=== PATIENT | female | born 1945 | race Caucasian/White ===

== ENCOUNTER 2018-09-28 10:49 | Emergency (ER) | payer MEDICARE | END 2018-09-28 15:09 | disposition home or self-care (01) | LOC: M ED 10:49 | DX: S50.02XA Contusion of left elbow, initial encounter (principal); W01.0XXA Fall on same level from slipping, tripping and stumbling without subsequent striking against object, initial encounter; Y92.481 Parking lot as the place of occurrence of the external cause; I25.10 Atherosclerotic heart disease of native coronary artery without angina pectoris; Z86.73 Personal history of transient ischemic attack (TIA), and cerebral infarction without residual deficits; Z87.891 Personal history of nicotine dependence; Z79.02 Long term (current) use of antithrombotics/antiplatelets; Z79.82 Long term (current) use of aspirin | CPT/HCPCS: 73080 ==

== ENCOUNTER → 2021-05-08 | Outpatient (REF) | payer MEDICARE ==
[~2021-05-08] MED LIST: ASPI81TA26 PO; CLOP75TA2 PO; ESCI10TA16 PO; ESOM1CAP5 PO; FURO20TA2 PO; METO25TA4 PO; PROAAER10 PO; ROSU20TA5 PO
== END ==
LOC: M LAB REF 10:14
PROVIDERS: ATTEND Ophthalmology
DX: H02.403 Unspecified ptosis of bilateral eyelids (principal)

== ENCOUNTER → 2025-08-10 | Outpatient (REF) ==
[~2025-08-10] MED LIST changes: +ESOM1CAP20 PO; -ESOM1CAP5 PO; -ROSU20TA5 PO; +ROSU20TA86 PO
== END ==
PROVIDERS: ATTEND Nurse Practitioner Family
DX: I50.9 Heart failure, unspecified (principal)

== ENCOUNTER → 2025-08-14 | Outpatient (REF) | PROVIDERS: ATTEND Physician Assistant | DX: J44.9 Chronic obstructive pulmonary disease, unspecified (principal); Z53.8 Procedure and treatment not carried out for other reasons ==

== ENCOUNTER → 2025-08-16 | Outpatient (REF) ==
[2025-08-16 11:21] LABS: PLATELET COUNT, AUTOMATED 226 10^3/uL (150-450)
[2025-08-16 12:14] LABS: CALCIUM LEVEL 8.6 MG/DL (8.3-10.6); CARBON DIOXIDE LEVEL 28.0 MMOL/L (20-31); CHLORIDE LEVEL 103.0 MMOL/L (98-107); CREATININE FOR GFR 0.65 MG/DL (0.55-1.30); GLOMERULAR FILTRATION RATE 88.4 (>32); MAGNESIUM LEVEL 1.5 MG/DL (1.8-2.4); POTASSIUM SERUM 3.6 MMOL/L (3.5-5.1); SODIUM LEVEL 138.0 MMOL/L (136-145)
== END ==
PROVIDERS: ATTEND Physician Assistant
DX: J44.9 Chronic obstructive pulmonary disease, unspecified (principal); Z53.8 Procedure and treatment not carried out for other reasons

== ENCOUNTER → 2025-08-21 | Outpatient (REF) | payer MEDICARE ==
[2025-08-21 11:05] LABS: PLATELET COUNT, AUTOMATED 335 10^3/uL (150-450)
[2025-08-21 11:29] LABS: CALCIUM LEVEL 8.8 MG/DL (8.3-10.6); CARBON DIOXIDE LEVEL 29.0 MMOL/L (20-31); CHLORIDE LEVEL 100.0 MMOL/L (98-107); CREATININE FOR GFR 0.78 MG/DL (0.55-1.30); GLOMERULAR FILTRATION RATE 76.3 (>32); MAGNESIUM LEVEL 1.5 MG/DL (1.8-2.4); POTASSIUM SERUM 4.2 MMOL/L (3.5-5.1); SODIUM LEVEL 140.0 MMOL/L (136-145)
== END ==
PROVIDERS: ATTEND Physician Assistant
DX: J44.9 Chronic obstructive pulmonary disease, unspecified (principal); I50.9 Heart failure, unspecified

== ENCOUNTER → 2025-08-25 | Outpatient (REF) | PROVIDERS: ATTEND Physician Assistant | DX: R05.9 Cough, unspecified (principal); Z53.8 Procedure and treatment not carried out for other reasons ==

== ENCOUNTER → 2025-08-28 | Outpatient (REF) | PROVIDERS: ATTEND Physician Assistant | DX: R05.9 Cough, unspecified (principal); Z53.8 Procedure and treatment not carried out for other reasons ==

== ENCOUNTER → 2025-08-28 | Outpatient (CLI) | payer MEDICARE | LOC: M RAD 11:50 | PROVIDERS: ATTEND Physician Assistant | DX: J44.1 Chronic obstructive pulmonary disease with (acute) exacerbation (principal) ==

== ENCOUNTER → 2025-08-28 | Outpatient (REF) ==
[2025-08-28 13:06] LABS: PLATELET COUNT, AUTOMATED 285 10^3/uL (150-450)
[2025-08-28 13:30] LABS: CALCIUM LEVEL 8.9 MG/DL (8.3-10.6); CARBON DIOXIDE LEVEL 29.0 MMOL/L (20-31); CHLORIDE LEVEL 102.0 MMOL/L (98-107); CREATININE FOR GFR 0.79 MG/DL (0.55-1.30); GLOMERULAR FILTRATION RATE 75.1 (>32); MAGNESIUM LEVEL 1.2 MG/DL (1.8-2.4); POTASSIUM SERUM 4.4 MMOL/L (3.5-5.1); SODIUM LEVEL 141.0 MMOL/L (136-145)
== END ==
PROVIDERS: ATTEND Physician Assistant
DX: J44.9 Chronic obstructive pulmonary disease, unspecified (principal); R05.9 Cough, unspecified

== ENCOUNTER → 2025-09-21 | Outpatient (REF) | payer MEDICARE ==
[2025-09-21 15:03] LABS: PLATELET COUNT, AUTOMATED 257 10^3/uL (150-450)
[2025-09-21 15:32] LABS: CK-MB VALUE MASS 1.2 NG/ML (<3.6)
[2025-09-21 15:33] LABS: CPK CREATINE PHOSPHOKINASE < 15 U/L (34-145); MB/CK RELATIVE INDEX 0.00 (< OR =4)
[2025-09-21 15:34] LABS: ALT/SGPT 16 U/L (7.0-40); AST/SGOT 12 U/L (<34); CALCIUM LEVEL 9.0 MG/DL (8.3-10.6); CARBON DIOXIDE LEVEL 24 MMOL/L (20-31); CHLORIDE LEVEL 102 MMOL/L (98-107); CREATININE FOR GFR 1.29 MG/DL (0.55-1.30); GLOMERULAR FILTRATION RATE 41.7 (>32); MAGNESIUM LEVEL 1.4 MG/DL (1.8-2.4); POTASSIUM SERUM 5.1 MMOL/L (3.5-5.1); SODIUM LEVEL 138 MMOL/L (136-145)
== END ==
PROVIDERS: ATTEND Physician Assistant
DX: I48.91 Unspecified atrial fibrillation (principal); R00.1 Bradycardia, unspecified; I50.9 Heart failure, unspecified

== ENCOUNTER → 2025-09-22 | Outpatient (CLI) | payer MEDICARE | LOC: M EKG 11:53 | PROVIDERS: ATTEND Internal Medicine | DX: R00.1 Bradycardia, unspecified (principal); I48.91 Unspecified atrial fibrillation; R94.31 Abnormal electrocardiogram [ECG] [EKG] ==

== ENCOUNTER → 2025-09-27 | Outpatient (REF) | payer MEDICARE, MEDICAID ==
[~2025-09-27] MED LIST changes: +ACET-910 PO; +ALBU2.5V10 INH; +BISA10SU27 PR; +BUDE0.5S6 INH; +BUDE10.7 INH; +CEFD300CAP PO; +DILT240C47 PO; +ELIQ5TAB PO; +FERR325T3 PO; +FLEC25TA PO; +FLEEENE12 PR; +GLUC1VIA14 IM; +GUAI600T12 PO; +INSU100I16 SQ; +IPRA0.00 INH; +L. A1TAB6 PO; +LANTINJ4 SQ; +LEXA1TAB2 PO; +MAGN400T33 PO; +METF500T13 PO; +METO1TAB87 PO; +MILKSUS3 PO; +NYST-38 PO; +ONDA-83 PO; +POTA1TAB23 PO; +PRED10TA2 PO; +PRED5TA PO; +RANO500T2 PO; +SPIR-10 PO
[2025-09-27 10:51] LABS: PLATELET COUNT, AUTOMATED 225 10^3/uL (150-450)
[2025-09-27 11:22] LABS: CALCIUM LEVEL 8.5 MG/DL (8.3-10.6); CARBON DIOXIDE LEVEL 27.0 MMOL/L (20-31); CHLORIDE LEVEL 102.0 MMOL/L (98-107); CREATININE FOR GFR 0.88 MG/DL (0.55-1.30); GLOMERULAR FILTRATION RATE 65.6 (>32); MAGNESIUM LEVEL 1.7 MG/DL (1.8-2.4); POTASSIUM SERUM 4.5 MMOL/L (3.5-5.1); SODIUM LEVEL 140.0 MMOL/L (136-145)
== END ==
PROVIDERS: ATTEND Physician Assistant
DX: J44.9 Chronic obstructive pulmonary disease, unspecified (principal)

== ENCOUNTER → 2025-09-28 | Outpatient (REF) | payer MEDICARE ==
[~2025-09-28] MED LIST changes: -ACET-910 PO; -ALBU2.5V10 INH; -BISA10SU27 PR; -BUDE0.5S6 INH; -BUDE10.7 INH; -CEFD300CAP PO; -DILT240C47 PO; -ELIQ5TAB PO; -FERR325T3 PO; -FLEC25TA PO; -FLEEENE12 PR; -GLUC1VIA14 IM; -GUAI600T12 PO; -INSU100I16 SQ; -IPRA0.00 INH; -L. A1TAB6 PO; -LANTINJ4 SQ; -LEXA1TAB2 PO; -MAGN400T33 PO; -METF500T13 PO; -METO1TAB87 PO; -MILKSUS3 PO; -NYST-38 PO; -ONDA-83 PO; -POTA1TAB23 PO; -PRED10TA2 PO; -PRED5TA PO; -RANO500T2 PO; -SPIR-10 PO
== END ==
PROVIDERS: ATTEND Physician Assistant
DX: S92.901D Unspecified fracture of right foot, subsequent encounter for fracture with routine healing (principal); E66.01 Morbid (severe) obesity due to excess calories

== ENCOUNTER → 2025-10-20 | Outpatient (REF) | payer MEDICARE, MEDICAID ==
[~2025-10-20] MED LIST changes: +ACET-910 PO; +ALBU2.5V10 INH; +BISA10SU27 PR; +BUDE0.5S6 INH; +BUDE10.7 INH; +CEFD300CAP PO; +DILT240C47 PO; +ELIQ5TAB PO; +FERR325T3 PO; +FLEC25TA PO; +FLEEENE12 PR; +GLUC1VIA14 IM; +GUAI600T12 PO; +INSU100I16 SQ; +IPRA0.00 INH; +L. A1TAB6 PO; +LANTINJ4 SQ; +LEXA1TAB2 PO; +MAGN400T33 PO; +METF500T13 PO; +METO1TAB87 PO; +MILKSUS3 PO; +NYST-38 PO; +ONDA-83 PO; +POTA1TAB23 PO; +PRED10TA2 PO; +PRED5TA PO; +RANO500T2 PO; +SPIR-10 PO
== END ==
PROVIDERS: ATTEND Physician Assistant
DX: R05.9 Cough, unspecified (principal)

== ENCOUNTER → 2025-10-20 | Outpatient (REF) | payer MEDICAID, MEDICARE | PROVIDERS: ATTEND Physician Assistant | DX: R05.9 Cough, unspecified (principal) ==

== ENCOUNTER → 2025-10-23 | Outpatient (REF) | payer MEDICAID, MEDICARE ==
[~2025-10-23] MED LIST changes: -CEFD300CAP PO; -METO1TAB87 PO; -PRED10TA2 PO
[2025-10-23 18:38] LABS: PLATELET COUNT, AUTOMATED 354 10^3/uL (150-450)
[2025-10-23 19:00] LABS: ALT/SGPT 19 U/L (7.0-40); AST/SGOT 25 U/L (<34); CALCIUM LEVEL 9.0 MG/DL (8.3-10.6); CARBON DIOXIDE LEVEL 25 MMOL/L (20-31); CHLORIDE LEVEL 96 MMOL/L (98-107); CREATININE FOR GFR 1.21 MG/DL (0.55-1.30); GLOMERULAR FILTRATION RATE 44.8 (>32); POTASSIUM SERUM 5.1 MMOL/L (3.5-5.1); SODIUM LEVEL 134 MMOL/L (136-145)
== END ==
PROVIDERS: ATTEND Physician Assistant
DX: R05.9 Cough, unspecified (principal); R11.0 Nausea

== ENCOUNTER → 2025-10-23 | Outpatient (REF) | payer MEDICARE, MEDICAID ==
[~2025-10-23] MED LIST changes: +CEFD300CAP PO; +METO1TAB87 PO; +PRED10TA2 PO
== END ==
PROVIDERS: ATTEND Internal Medicine
DX: R05.9 Cough, unspecified (principal); Z53.8 Procedure and treatment not carried out for other reasons

== ENCOUNTER → 2025-10-24 | Outpatient (REF) | payer MEDICAID, MEDICARE | PROVIDERS: ATTEND Physician Assistant | DX: R05.9 Cough, unspecified (principal) ==

== ENCOUNTER → 2025-10-25 | Outpatient (REF) | payer MEDICARE ==
[~2025-10-25] MED LIST changes: -CEFD300CAP PO; -METO1TAB87 PO; -PRED10TA2 PO
[2025-10-25 13:20] LABS: PLATELET COUNT, AUTOMATED 370 10^3/uL (150-450)
[2025-10-25 13:58] LABS: CALCIUM LEVEL 8.9 MG/DL (8.3-10.6); CARBON DIOXIDE LEVEL 27.0 MMOL/L (20-31); CHLORIDE LEVEL 98.0 MMOL/L (98-107); CREATININE FOR GFR 1.33 MG/DL (0.55-1.30); GLOMERULAR FILTRATION RATE 40.0 (>32); MAGNESIUM LEVEL 2.1 MG/DL (1.8-2.4); POTASSIUM SERUM 5.4 MMOL/L (3.5-5.1); SODIUM LEVEL 135.0 MMOL/L (136-145)
== END ==
PROVIDERS: ATTEND Physician Assistant
DX: J44.9 Chronic obstructive pulmonary disease, unspecified (principal)

== ENCOUNTER 2025-10-26 07:44 | Inpatient (IN) | payer MEDICARE, MEDICAID ==
[~2025-10-26] VITALS: Ht 160 cm; Wt 63.9 kg
[2025-10-26] VITALS (9 sets, daily range): BP systolic 106–126; BP diastolic 54–63; TEMP 98.5–98.9; O2SAT 94–99
[~2025-10-26 07:44] MED LIST changes: -ACET-910 PO; -ALBU2.5V10 INH; -BISA10SU27 PR; -BUDE0.5S6 INH; -BUDE10.7 INH; -DILT240C47 PO; -ELIQ5TAB PO; -FERR325T3 PO; -FLEC25TA PO; -FLEEENE12 PR; -GLUC1VIA14 IM; -GUAI600T12 PO; -INSU100I16 SQ; -IPRA0.00 INH; -L. A1TAB6 PO; -LANTINJ4 SQ; -LEXA1TAB2 PO; -MAGN400T33 PO; -METF500T13 PO; -MILKSUS3 PO; -NYST-38 PO; -ONDA-83 PO; -POTA1TAB23 PO; -PRED5TA PO; -RANO500T2 PO; -SPIR-10 PO
[2025-10-26 08:16] LABS: VENOUS BASE EXCESS 1.3 (-2.0-2.0); VENOUS HCO3 25.9 MMOL/L (23.0-27.0); VENOUS O2 SATURATION 83.7 % (60.0-80.0); VENOUS PARTIAL PRESSURE CO2 40.8 mmHg (38.0-50.0); VENOUS PARTIAL PRESSURE O2 51.9 mmHg (30.0-50.0); VENOUS PH 7.420 UNITS (7.330-7.430); VENOUS STANDARD HCO3 25.3 MMOL/L; VENOUS TOTAL CO2 27.1 MMOL/L (24.0-28.0)
[2025-10-26 08:26] LABS: BASO # 0.1 10^3/uL (0.0-0.2); BASO % 0.4 % (0.0-1.0); EOS # 0.1 10^3/uL (0.0-0.5); EOS % 0.6 % (0.0-3.0); LYMPH # 0.7 10^3/uL (1.5-5.0); LYMPH % 4.3 % (24.0-44.0); MONO # 1.0 10^3/uL (0.0-0.8); MONO % 6.6 % (2.0-8.0); NEUTROPHILS # 13.1 10^3/uL (1.5-8.5); NEUTROPHILS % 83.7 % (36.0-66.0); PLATELET COUNT, AUTOMATED 356 10^3/uL (150-450)
[2025-10-26] MEDS: IPRATROPIUM 0.5 MG/ALBUTEROL 2.5 MG INH SOL UD 3 ML NEB PRN (08:33)
[2025-10-26] MEDS ORDERED: SPIR-10 PO (08:47)
[2025-10-26] MEDS ORDERED: FERR325T3 PO (08:49)
[2025-10-26 08:52] LABS: ALT/SGPT 13.0 U/L (7.0-40); AST/SGOT 12.0 U/L (<34); CALCIUM LEVEL 8.9 MG/DL (8.3-10.6); CARBON DIOXIDE LEVEL 29.0 MMOL/L (20-31); CHLORIDE LEVEL 97.0 MMOL/L (98-107); CREATININE FOR GFR 1.32 MG/DL (0.55-1.30); GLOMERULAR FILTRATION RATE 40.3 (>32); POTASSIUM SERUM 5.6 MMOL/L (3.5-5.1); SODIUM LEVEL 135.0 MMOL/L (136-145)
[2025-10-26] MEDS ORDERED: LANTINJ4 SQ (08:54)
[2025-10-26] MEDS ORDERED: LEXA1TAB2 PO (08:57)
[2025-10-26] MEDS ORDERED: POTA1TAB23 PO (08:59)
[2025-10-26] MEDS: AZITHROMYCIN 250 MG TABLET PO ONE (09:01)
[2025-10-26] MEDS ORDERED: PRED5TA PO (09:02)
[2025-10-26] MEDS: cefTRIAXone SOD 1 GM in DEXTROSE 5% (D5W) ADV/MINI-BAG 50 ML IV ONE (09:02)
[2025-10-26] MEDS ORDERED: BUDE10.7 INH (09:05)
[2025-10-26] MEDS ORDERED: FLEC25TA PO (09:08)
[2025-10-26] MEDS ORDERED: ELIQ5TAB PO (09:08)
[2025-10-26] MEDS ORDERED: BUDE0.5S6 INH (09:08)
[2025-10-26] MEDS ORDERED: GUAI600T12 PO (09:13)
[2025-10-26] MEDS ORDERED: L. A1TAB6 PO (09:13)
[2025-10-26] MEDS ORDERED: MAGN400T33 PO (09:15)
[2025-10-26] MEDS ORDERED: METF500T13 PO (09:16)
[2025-10-26] MEDS ORDERED: RANO500T2 PO (09:19)
[2025-10-26] MEDS ORDERED: ONDA-83 PO (09:19)
[2025-10-26] MEDS ORDERED: INSU100I16 SQ (09:23)
[2025-10-26] MEDS ORDERED: NYST-38 PO (09:28)
[2025-10-26] MEDS ORDERED: IPRA0.00 INH (09:28)
[2025-10-26] MEDS ORDERED: ACET-910 PO (09:32)
[2025-10-26] MEDS ORDERED: ALBU2.5V10 INH (09:32)
[2025-10-26] MEDS ORDERED: BISA10SU27 PR (09:33)
[2025-10-26] MEDS ORDERED: FLEEENE12 PR (09:36)
[2025-10-26] MEDS ORDERED: GLUC1VIA14 IM (09:36)
[2025-10-26] MEDS ORDERED: MILKSUS3 PO (09:37)
[2025-10-26] MEDS ORDERED: HOME MED LIST COMPLETE! XX SCH (09:40)
[2025-10-26] MEDS: FUROSEMIDE 100 MG/10 ML VIAL IV ONE (09:55)
[2025-10-26] MEDS ORDERED: GLUCOSE 4 GM CHEW PO PRN (11:25)
[2025-10-26] MEDS ORDERED: IPRATROPIUM 0.5 MG/ALBUTEROL 2.5 MG INH SOL UD 3 ML NEB PRN (11:25)
[2025-10-26] MEDS ORDERED: GLUCAGON INJ 1 MG VIAL SC PRN (11:25)
[2025-10-26] MEDS ORDERED: BISACODYL 10 MG SUPP PR PRN (11:25)
[2025-10-26] MEDS ORDERED: ACETAMINOPHEN 325 MG TAB PO PRN (11:25)
[2025-10-26] MEDS ORDERED: DEXTROSE 50% 50 ML SYRINGE IV PRN (11:25)
[2025-10-26] MEDS ORDERED: MOM 30 ML SUSPENSION UDC PO PRN (11:25)
[2025-10-26] MEDS ORDERED: FLEET ENEMA PR PRN (11:25)
[2025-10-26] MEDS ORDERED: MAALOX 30 ML SUSP *UDC PO PRN (11:25)
[2025-10-26] MEDS ORDERED: DILT240C47 PO (12:13)
[2025-10-26] MEDS: METOPROLOL TART 12.5 MG PER 1/2 TAB PO SCH (13:38)
[2025-10-26] MEDS: FERROUS SULFATE 325 MG TAB PO SCH (13:40)
[2025-10-26] MEDS: INSULIN LISPRO (NovoLOG) PER UNIT SC SCH ×2 (13:40→20:35)
[2025-10-26] MEDS: APIXABAN 5 MG TAB PO SCH (13:41)
[2025-10-26] MEDS: guaiFENesin ER TABLET 600 MG TAB PO SCH (13:41)
[2025-10-26] MEDS: ESCITALOPRAM OXALATE 10 MG TABLET PO SCH (13:41)
[2025-10-26] MEDS: ONDANSETRON 4MG TAB PO SCH (13:41)
[2025-10-26] MEDS: PANTOPRAZOLE 40MG TAB PO SCH (13:41)
[2025-10-26] MEDS: FLECAINIDE 50 MG TABLET PO SCH (13:42)
[2025-10-26] MEDS: RANOLAZINE 500MG ER TAB PO SCH (13:43)
[2025-10-26] MEDS: NYSTATIN 500,000 UNITS/5 ML SUSP UDC PO SCH (13:51)
[2025-10-26] MEDS: BUDESONIDE 0.5 MG/2 ML INHALATION SUSPENSION INH SCH (14:59)
[2025-10-26] MEDS: IPRATROPIUM 0.5 MG/ALBUTEROL 2.5 MG INH SOL UD 3 ML NEB SCH (14:59)
[2025-10-26] MEDS: TIOTROPIUM BROM 2.5MCG/ACTUATION 4GM INH INH SCH (14:59)
[2025-10-26] MEDS: ADVAIR HFA 115/21 MCG INHALER INH SCH (14:59)
[2025-10-26] MEDS: DOCUSATE SODIUM 100 MG CAPSULE PO SCH (21:15)
[2025-10-26] MEDS: LanTUS (INSULIN GLARGINE INJ) 1 UNITS/0.01 ML SC SCH (21:15)
[2025-10-26] MEDS: ROSUVASTATIN 10 MG TAB PO SCH (21:16)
[2025-10-26] MEDS: MAGNESIUM OXIDE 400 MG TAB PO SCH (21:16)
[2025-10-27] VITALS (13 sets, daily range): BP systolic 115–130; BP diastolic 55–76; TEMP 96.9–98.4; O2SAT 92–98
[2025-10-27 06:18] LABS: BASO # 0.0 10^3/uL (0.0-0.2); BASO % 0.3 % (0.0-1.0); EOS # 0.0 10^3/uL (0.0-0.5); EOS % 0.0 % (0.0-3.0); LYMPH # 0.4 10^3/uL (1.5-5.0); LYMPH % 2.6 % (24.0-44.0); MONO # 0.3 10^3/uL (0.0-0.8); MONO % 2.2 % (2.0-8.0); NEUTROPHILS # 12.2 10^3/uL (1.5-8.5); NEUTROPHILS % 90.8 % (36.0-66.0); PLATELET COUNT, AUTOMATED 380 10^3/uL (150-450)
[2025-10-27 06:41] LABS: ALT/SGPT 17.0 U/L (7.0-40); AST/SGOT 12.0 U/L (<34); CALCIUM LEVEL 9.0 MG/DL (8.3-10.6); CARBON DIOXIDE LEVEL 29.0 MMOL/L (20-31); CHLORIDE LEVEL 96.0 MMOL/L (98-107); CREATININE FOR GFR 1.06 MG/DL (0.55-1.30); GLOMERULAR FILTRATION RATE 52.5 (>32); MAGNESIUM LEVEL 2.3 MG/DL (1.8-2.4); POTASSIUM SERUM 5.7 MMOL/L (3.5-5.1); SODIUM LEVEL 134.0 MMOL/L (136-145)
[2025-10-27] MEDS: AZITHROMYCIN 250 MG TABLET PO SCH (08:19)
[2025-10-27] MEDS: cefTRIAXone SOD 1 GM in DEXTROSE 5% (D5W) ADV/MINI-BAG 50 ML IV SCH (08:20)
[2025-10-27] MEDS: SOD POLYSTYRENE SULFONATE SUSP 15GM 60ML UD PO ONE (09:30)
[2025-10-27] MEDS: predniSONE 20 MG TAB PO SCH (11:32)
[2025-10-27] MEDS: FUROSEMIDE 20 MG TAB PO SCH (11:32)
[2025-10-28 03:15] VITALS: BP 132/64; TEMP 97.1; O2SAT 100
[2025-10-28 05:39] LABS: BASO # 0.0 10^3/uL (0.0-0.2); BASO % 0.2 % (0.0-1.0); EOS # 0.0 10^3/uL (0.0-0.5); EOS % 0.0 % (0.0-3.0); LYMPH # 0.4 10^3/uL (1.5-5.0); LYMPH % 2.1 % (24.0-44.0); MONO # 0.6 10^3/uL (0.0-0.8); MONO % 3.2 % (2.0-8.0); NEUTROPHILS # 16.7 10^3/uL (1.5-8.5); NEUTROPHILS % 91.6 % (36.0-66.0); PLATELET COUNT, AUTOMATED 416 10^3/uL (150-450)
[2025-10-28 06:07] LABS: ALT/SGPT 14.0 U/L (7.0-40); AST/SGOT 14.0 U/L (<34); CALCIUM LEVEL 8.8 MG/DL (8.3-10.6); CARBON DIOXIDE LEVEL 32.0 MMOL/L (20-31); CHLORIDE LEVEL 100.0 MMOL/L (98-107); CREATININE FOR GFR 1.01 MG/DL (0.55-1.30); GLOMERULAR FILTRATION RATE 55.6 (>32); MAGNESIUM LEVEL 2.1 MG/DL (1.8-2.4); POTASSIUM SERUM 5.2 MMOL/L (3.5-5.1); SODIUM LEVEL 139.0 MMOL/L (136-145)
[2025-10-28 08:04] VITALS: BP 144/80; TEMP 97.3; O2SAT 95
[2025-10-28] MEDS ORDERED: FUROSEMIDE 20 MG TAB PO SCH (09:00)
[2025-10-28] MEDS: predniSONE 20 MG TAB PO SCH (10:04)
[2025-10-28 15:44] LABS: C REACTIVE PROTEIN QUANTITATIV 8.54 MG/DL (<1.0)
[2025-10-28 16:57] VITALS: BP 108/68; TEMP 96.9; O2SAT 96
[2025-10-28 21:04] VITALS: BP 109/68; TEMP 97.3; O2SAT 95
[2025-10-28] MEDS: CEFDINIR 300 MG CAP PO SCH (21:20)
[2025-10-29] VITALS (8 sets, daily range): BP systolic 115–129; BP diastolic 55–77; TEMP 96.1–98.9; O2SAT 91–98
[2025-10-29 05:34] LABS: BASO # 0.0 10^3/uL (0.0-0.2); BASO % 0.2 % (0.0-1.0); EOS # 0.0 10^3/uL (0.0-0.5); EOS % 0.2 % (0.0-3.0); LYMPH # 0.9 10^3/uL (1.5-5.0); LYMPH % 7.0 % (24.0-44.0); MONO # 0.7 10^3/uL (0.0-0.8); MONO % 5.4 % (2.0-8.0); NEUTROPHILS # 11.1 10^3/uL (1.5-8.5); NEUTROPHILS % 84.7 % (36.0-66.0); PLATELET COUNT, AUTOMATED 432 10^3/uL (150-450)
[2025-10-29 05:55] LABS: C REACTIVE PROTEIN QUANTITATIV 4.31 MG/DL (<1.0)
[2025-10-29 05:56] LABS: ALT/SGPT 13.0 U/L (7.0-40); AST/SGOT 11.0 U/L (<34); CALCIUM LEVEL 8.6 MG/DL (8.3-10.6); CARBON DIOXIDE LEVEL 32.0 MMOL/L (20-31); CHLORIDE LEVEL 100.0 MMOL/L (98-107); CREATININE FOR GFR 0.98 MG/DL (0.55-1.30); GLOMERULAR FILTRATION RATE 57.6 (>32); MAGNESIUM LEVEL 2.2 MG/DL (1.8-2.4); POTASSIUM SERUM 4.8 MMOL/L (3.5-5.1); SODIUM LEVEL 140.0 MMOL/L (136-145)
[2025-10-29] MEDS: predniSONE 20 MG TAB PO SCH (08:42)
[2025-10-29] MEDS: METOPROLOL TART 25 MG TABLET PO SCH (08:44)
[2025-10-30] VITALS (11 sets, daily range): BP systolic 89–124; BP diastolic 52–70; TEMP 97–97.3; O2SAT 90–97
[2025-10-30 06:56] LABS: C REACTIVE PROTEIN QUANTITATIV 3.85 MG/DL (<1.0)
[2025-10-30 07:11] LABS: ALT/SGPT 11.0 U/L (7.0-40); AST/SGOT 11.0 U/L (<34); CALCIUM LEVEL 8.8 MG/DL (8.3-10.6); CARBON DIOXIDE LEVEL 34.0 MMOL/L (20-31); CHLORIDE LEVEL 101.0 MMOL/L (98-107); CREATININE FOR GFR 0.84 MG/DL (0.55-1.30); GLOMERULAR FILTRATION RATE 69.3 (>32); MAGNESIUM LEVEL 2.2 MG/DL (1.8-2.4); POTASSIUM SERUM 4.4 MMOL/L (3.5-5.1); SODIUM LEVEL 141.0 MMOL/L (136-145)
[2025-10-30 07:23] LABS: BASO # 0.1 10^3/uL (0.0-0.2); BASO % 0.4 % (0.0-1.0); EOS # 0.1 10^3/uL (0.0-0.5); EOS % 1.2 % (0.0-3.0); LYMPH # 1.1 10^3/uL (1.5-5.0); LYMPH % 9.9 % (24.0-44.0); MONO # 0.6 10^3/uL (0.0-0.8); MONO % 5.5 % (2.0-8.0); NEUTROPHILS # 9.0 10^3/uL (1.5-8.5); NEUTROPHILS % 78.4 % (36.0-66.0); PLATELET COUNT, AUTOMATED 377 10^3/uL (150-450)
[2025-10-30] MEDS ORDERED: PRED10TA2 PO (12:09)
[2025-10-30] MEDS ORDERED: CEFD300CAP PO (12:09)
[2025-10-30] MEDS ORDERED: METO1TAB87 PO (12:09)
[2025-10-30] MEDS ORDERED: FURO20TA2 PO (12:51)
[2025-10-31 00:31] LABS: URINE STREP PNEUMONIAE ANTIGEN Not Detected (Not Detected)
[2025-10-31] MEDS ORDERED: predniSONE 10 MG TAB PO SCH (09:00)
== END 2025-10-30 13:11 | DRG 190 ==
LOC: M ED 07:44 → EDBD 07:44 → M ED INP 10:18 → M PCU 18:04
PROVIDERS: ADMIT Internal Medicine; ATTEND Internal Medicine
PROC: B246ZZZ Ultrasonography of Right and Left Heart (ICD-10-PCS; principal; 2025-10-28)
DX: J44.1 Chronic obstructive pulmonary disease with (acute) exacerbation (principal); J96.21 Acute and chronic respiratory failure with hypoxia; J18.9 Pneumonia, unspecified organism; I69.351 Hemiplegia and hemiparesis following cerebral infarction affecting right dominant side; E87.1 Hypo-osmolality and hyponatremia; N17.9 Acute kidney failure, unspecified; B37.0 Candidal stomatitis; I13.0 Hypertensive heart and chronic kidney disease with heart failure and stage 1 through stage 4 chronic kidney disease, or unspecified chronic kidney disease; Z99.81 Dependence on supplemental oxygen; I50.9 Heart failure, unspecified; G47.33 Obstructive sleep apnea (adult) (pediatric); D64.9 Anemia, unspecified; E78.00 Pure hypercholesterolemia, unspecified; K21.9 Gastro-esophageal reflux disease without esophagitis; I25.10 Atherosclerotic heart disease of native coronary artery without angina pectoris; I48.91 Unspecified atrial fibrillation; F32.A Depression, unspecified; E11.22 Type 2 diabetes mellitus with diabetic chronic kidney disease; I44.7 Left bundle-branch block, unspecified; J44.0 Chronic obstructive pulmonary disease with (acute) lower respiratory infection; E87.5 Hyperkalemia; E87.8 Other disorders of electrolyte and fluid balance, not elsewhere classified; E83.42 Hypomagnesemia; M85.80 Other specified disorders of bone density and structure, unspecified site; K59.09 Other constipation; Z79.01 Long term (current) use of anticoagulants; Z79.4 Long term (current) use of insulin; Z79.52 Long term (current) use of systemic steroids; Z79.899 Other long term (current) drug therapy; N18.9 Chronic kidney disease, unspecified

== ENCOUNTER → 2025-10-30 | Outpatient (REF) | payer MEDICARE ==
[~2025-10-30] MED LIST changes: +ACET-910 PO; +ALBU2.5V10 INH; +BISA10SU27 PR; +BUDE0.5S6 INH; +BUDE10.7 INH; +CEFD300CAP PO; +DILT240C47 PO; +ELIQ5TAB PO; +FERR325T3 PO; +FLEC25TA PO; +FLEEENE12 PR; +GLUC1VIA14 IM; +GUAI600T12 PO; +INSU100I16 SQ; +IPRA0.00 INH; +L. A1TAB6 PO; +LANTINJ4 SQ; +LEXA1TAB2 PO; +MAGN400T33 PO; +METF500T13 PO; +METO1TAB87 PO; +MILKSUS3 PO; +NYST-38 PO; +ONDA-83 PO; +POTA1TAB23 PO; +PRED10TA2 PO; +PRED25TA PO; +PRED5TA PO; +RANO500T2 PO; +SPIR-10 PO
== END ==
PROVIDERS: ATTEND Physician Assistant
DX: I50.9 Heart failure, unspecified (principal); Z53.8 Procedure and treatment not carried out for other reasons

== ENCOUNTER 2025-11-03 11:36 | Emergency (ER) | payer MEDICARE ==
[~2025-11-03] VITALS: Ht 154.9 cm; Wt 67.9 kg
[~2025-11-03 11:36] MED LIST changes: -PRED25TA PO
[2025-11-03 12:07] LABS: VENOUS BASE EXCESS 1.7 (-2.0-2.0); VENOUS HCO3 26.7 MMOL/L (23.0-27.0); VENOUS O2 SATURATION 86.3 % (60.0-80.0); VENOUS PARTIAL PRESSURE CO2 43.4 mmHg (38.0-50.0); VENOUS PARTIAL PRESSURE O2 54.5 mmHg (30.0-50.0); VENOUS PH 7.407 UNITS (7.330-7.430); VENOUS STANDARD HCO3 25.7 MMOL/L; VENOUS TOTAL CO2 28.0 MMOL/L (24.0-28.0)
[2025-11-03 12:34] LABS: BASO # 0.0 10^3/uL (0.0-0.2); BASO % 0.3 % (0.0-1.0); EOS # 0.1 10^3/uL (0.0-0.5); EOS % 0.6 % (0.0-3.0); LYMPH # 0.4 10^3/uL (1.5-5.0); LYMPH % 2.4 % (24.0-44.0); MONO # 0.6 10^3/uL (0.0-0.8); MONO % 4.1 % (2.0-8.0); NEUTROPHILS # 13.0 10^3/uL (1.5-8.5); NEUTROPHILS % 89.3 % (36.0-66.0); PLATELET COUNT, AUTOMATED 376 10^3/uL (150-450)
[2025-11-03 12:46] LABS: ALT/SGPT 12 U/L (7.0-40); AST/SGOT 16 U/L (<34); CALCIUM LEVEL 8.6 MG/DL (8.3-10.6); CARBON DIOXIDE LEVEL 28 MMOL/L (20-31); CHLORIDE LEVEL 101 MMOL/L (98-107); CREATININE FOR GFR 1.11 MG/DL (0.55-1.30); GLOMERULAR FILTRATION RATE 49.6 (>32); POTASSIUM SERUM 5.4 MMOL/L (3.5-5.1); SODIUM LEVEL 140 MMOL/L (136-145)
[2025-11-03 12:57] LABS: INR 1.53
[2025-11-03] MEDS: FUROSEMIDE 20 MG/2 ML VIAL IV ONE (14:30)
[2025-11-03] MEDS: IPRATROPIUM 0.5 MG/ALBUTEROL 2.5 MG INH SOL UD 3 ML NEB ONE (14:42)
[2025-11-03 14:45] VITALS: O2SAT 95
[2025-11-03] MEDS ORDERED: ONDANSETRON 4MG/2ML VIAL As Ordered ONE (15:03)
[2025-11-03] MEDS: ONDANSETRON 4MG/2ML VIAL IV ONE (15:16)
[2025-11-03] MEDS ORDERED: PRED25TA PO (16:02)
[2025-11-03] MEDS ORDERED: HOME MED LIST COMPLETE! XX SCH (16:10)
[2025-11-03] MEDS ORDERED: GLUCOSE 4 GM CHEW PO PRN (17:40)
[2025-11-03] MEDS ORDERED: MOM 30 ML SUSPENSION UDC PO PRN (17:40)
[2025-11-03] MEDS ORDERED: ACETAMINOPHEN 325 MG TAB PO PRN (17:40)
[2025-11-03] MEDS ORDERED: DEXTROSE 50% 50 ML SYRINGE IV PRN (17:40)
[2025-11-03] MEDS ORDERED: GLUCAGON INJ 1 MG VIAL SC PRN (17:40)
[2025-11-03] MEDS: FUROSEMIDE 40 MG/4 ML VIAL IV ONE (18:24)
[2025-11-03] MEDS: BUDESONIDE 0.5 MG/2 ML INHALATION SUSPENSION INH SCH (20:35)
[2025-11-03] MEDS: IPRATROPIUM 0.5 MG/ALBUTEROL 2.5 MG INH SOL UD 3 ML NEB SCH (20:35)
[2025-11-03] MEDS: SYMBICORT 160/4.5MCG INHALER 6GM INH SCH (20:35)
[2025-11-03] MEDS: NYSTATIN 500,000 UNITS/5 ML SUSP UDC PO SCH (20:59)
[2025-11-03] MEDS: MAGNESIUM OXIDE 400 MG TAB PO SCH (20:59)
[2025-11-03] MEDS: ROSUVASTATIN 10 MG TAB PO SCH (20:59)
[2025-11-03] MEDS: METOPROLOL TART 25 MG TABLET PO SCH (21:00)
[2025-11-03] MEDS: INSULIN LISPRO (NovoLOG) PER UNIT SC SCH (21:06)
[2025-11-03] MEDS: RANOLAZINE 500MG ER TAB PO SCH (22:35)
[2025-11-03] MEDS: LanTUS (INSULIN GLARGINE INJ) 1 UNITS/0.01 ML SC SCH (22:35)
[2025-11-04 00:57] LABS: ABG BASE EXCESS 5.9 (-2.0-2.0); ABG HCO3 29.8 MMOL/L (22.0-26.0); ABG O2 SATURATION 95.5 % (95.0-99.0); ABG PARTIAL PRESSURE CO2 40.9 mmHg (35.0-45.0); ABG PARTIAL PRESSURE O2 79.1 mmHg (75.0-100.0); ABG STANDARD HCO3 29.7 MMOL/L. (22.0-26.0); ABG TOTAL CO2 31.1 MMOL/L (23.0-31.0); ABG pH (ARTERIAL) 7.481 UNITS (7.350-7.450)
[2025-11-04] MEDS: FUROSEMIDE 40 MG/4 ML VIAL IV ONE (01:19)
[2025-11-04] MEDS: ALBUTEROL SULFATE 2.5 MG/0.5 ML INH CONCENTRATE NEB SOLN NEB PRN (02:14)
[2025-11-04] MEDS: INSULIN LISPRO (NovoLOG) PER UNIT SC SCH (08:15)
[2025-11-04] MEDS: TIOTROPIUM BROM 2.5MCG/ACTUATION 4GM INH INH SCH (08:15)
[2025-11-04] MEDS: ESCITALOPRAM OXALATE 10 MG TABLET PO SCH (08:57)
[2025-11-04] MEDS: FERROUS SULFATE 325 MG TAB PO SCH (08:57)
[2025-11-04] MEDS: PANTOPRAZOLE 40MG TAB PO SCH (08:58)
[2025-11-04] MEDS: FUROSEMIDE 40 MG/4 ML VIAL IV SCH (08:59)
[2025-11-04 10:08] LABS: PLATELET COUNT, AUTOMATED 378 10^3/uL (150-450)
[2025-11-04 10:39] LABS: CALCIUM LEVEL 8.8 MG/DL (8.3-10.6); CARBON DIOXIDE LEVEL 27.0 MMOL/L (20-31); CHLORIDE LEVEL 95.0 MMOL/L (98-107); CREATININE FOR GFR 1.13 MG/DL (0.55-1.30); GLOMERULAR FILTRATION RATE 48.6 (>32); MAGNESIUM LEVEL 1.9 MG/DL (1.8-2.4); POTASSIUM SERUM 4.5 MMOL/L (3.5-5.1); SODIUM LEVEL 135.0 MMOL/L (136-145)
[2025-11-04] MEDS ORDERED: PILL CUTTER 1 EACH XX PRN (13:20)
[2025-11-04] MEDS: ENOXAPARIN 100 MG/1 ML SYRINGE (J1650 PER 10MG) SC SCH (13:48)
[2025-11-04] MEDS: METOPROLOL TART 25 MG TABLET PO SCH (23:59)
[2025-11-05] MEDS: DIGOXIN INJ 0.5 MG/2 ML AMP IV SCH (11:00)
[2025-11-05 15:48] LABS: PLATELET COUNT, AUTOMATED 362 10^3/uL (150-450)
[2025-11-05 16:04] LABS: CALCIUM LEVEL 9.1 MG/DL (8.3-10.6); CARBON DIOXIDE LEVEL 28.0 MMOL/L (20-31); CHLORIDE LEVEL 99.0 MMOL/L (98-107); CREATININE FOR GFR 1.1 MG/DL (0.55-1.30); GLOMERULAR FILTRATION RATE 50.2 (>32); MAGNESIUM LEVEL 2.1 MG/DL (1.8-2.4); POTASSIUM SERUM 4.7 MMOL/L (3.5-5.1); SODIUM LEVEL 137.0 MMOL/L (136-145)
[2025-11-05] MEDS: FUROSEMIDE 40 MG/4 ML VIAL IV SCH (21:32)
[2025-11-05] MEDS: IPRATROPIUM 0.5 MG/ALBUTEROL 2.5 MG INH SOL UD 3 ML NEB PRN (21:34)
[2025-11-06] MEDS: ENOXAPARIN 80 MG/0.8 ML SYRINGE (J1650 PER 10MG) SC SCH (10:55)
[2025-11-06 17:12] LABS: BASO # 0.0 10^3/uL (0.0-0.2); BASO % 0.1 % (0.0-1.0); EOS # 0.0 10^3/uL (0.0-0.5); EOS % 0.0 % (0.0-3.0); LYMPH # 0.3 10^3/uL (1.5-5.0); LYMPH % 2.0 % (24.0-44.0); MONO # 0.9 10^3/uL (0.0-0.8); MONO % 5.5 % (2.0-8.0); NEUTROPHILS # 14.9 10^3/uL (1.5-8.5); NEUTROPHILS % 91.5 % (36.0-66.0); PLATELET COUNT, AUTOMATED 371 10^3/uL (150-450)
[2025-11-06 17:43] LABS: CALCIUM LEVEL 8.7 MG/DL (8.3-10.6); CARBON DIOXIDE LEVEL 34 MMOL/L (20-31); CHLORIDE LEVEL 97 MMOL/L (98-107); CREATININE FOR GFR 0.98 MG/DL (0.55-1.30); GLOMERULAR FILTRATION RATE 57.6 (>32); POTASSIUM SERUM 4.2 MMOL/L (3.5-5.1); SODIUM LEVEL 140 MMOL/L (136-145)
[2025-11-07 23:19] VITALS: BP 148/69
[2025-11-08 06:30] VITALS: BP 109/62; TEMP 99.1
[2025-11-08] MEDS: IPRATROPIUM 0.5 MG/ALBUTEROL 2.5 MG INH SOL UD 3 ML NEB ONE (06:41)
[2025-11-08 06:45] VITALS: O2SAT 96
[2025-11-08] MEDS ORDERED: predniSONE 20 MG TAB PO SCH (09:00)
== END 2025-11-08 06:45 | disposition short-term general hospital (02) ==
LOC: M ED 11:36
DX: I50.9 Heart failure, unspecified (principal); I35.0 Nonrheumatic aortic (valve) stenosis; I48.91 Unspecified atrial fibrillation; I45.4 Nonspecific intraventricular block; I44.4 Left anterior fascicular block; F32.A Depression, unspecified; G47.33 Obstructive sleep apnea (adult) (pediatric); J44.9 Chronic obstructive pulmonary disease, unspecified; E78.5 Hyperlipidemia, unspecified; K21.9 Gastro-esophageal reflux disease without esophagitis; F41.9 Anxiety disorder, unspecified; E11.9 Type 2 diabetes mellitus without complications; I25.2 Old myocardial infarction; Z86.79 Personal history of other diseases of the circulatory system; Z79.52 Long term (current) use of systemic steroids; Z79.1 Long term (current) use of non-steroidal anti-inflammatories (NSAID); Z79.4 Long term (current) use of insulin; Z79.01 Long term (current) use of anticoagulants; Z79.899 Other long term (current) drug therapy
CPT/HCPCS: 36415; 36600; 71045; 80048; 80076; 82803; 83735; 83880; 84145; 85025; 85027; 85610; 87486; 87581; 87633; 87798; 93005; 93041; 94640; 94660; 94760; 96372; 96374; 96375; 96376; 99285; J1160; J1650; J1815; J1938; J2405; J2919

== ENCOUNTER → 2025-11-06 | Outpatient (REF) | payer MEDICARE ==
[~2025-11-06] MED LIST changes: +PRED25TA PO
== END ==
PROVIDERS: ATTEND Physician Assistant
DX: I50.9 Heart failure, unspecified (principal)